=== PATIENT | female | born 1995 | race Caucasian/White ===

== ENCOUNTER 2025-05-01 13:22 | Emergency (ER) | payer BC, SELFPAY ==
[2025-05-01] VITALS (12 sets, daily range): BP systolic 90–113; BP diastolic 52–85; PULSE 78–92; RESP 13–30; TEMP 36.6; O2SAT 97–98
--- NOTE | 2025-05-01 13:49 | W.ED.GENAD ---
Discharge Plan Disposition Patient Disposition: Home Condition: Stable Discharge Details Clinical Impression: Gastroenteritis Primary Care Provider: Unknown,Unknown ED Provider: Shane Connelly Home Meds and New Rx's Prescriptions: New ondansetron 4 mg tablet,disintegrating 4 mg PO Q8H PRNQty: 30 0RF Continued escitalopram oxalate [Lexapro] 20 mg tablet 20 mg PO DAILY Discharge Instructions Instructions: Viral gastroenteritis in adults, Ondansetron Additional Instructions: You were seen in the emergency department for your likely viral gastroenteritis, your labs are reassuring for no evidence of severe infection or sepsis, your symptoms were controlled with antiemetics as well as IV Tylenol and Toradol and IV fluids. I have sent a prescription for oral antiemetic called ondansetron/Zofran to your pharmacy, place this dissolvable tablet under your tongue 20 to 30 minutes before attempting oral intake, your CT is negative for any sign of appendicitis, dysfunction of any organ in the biliary tree like liver or gallbladder or pancreas, sign of renal stone, your urine shows no evidence of infection and you are not , please return to the emergency department for continued intractable nausea and vomiting despite treatment, developing fever with severe worsening of abdominal pain. HPI General Date/Time Provider Initiated Documentation: 05/01/25 13:30. HPI Narrative: 29 year-old female presents to ED today by EMS with a chief complaint of acute nausea/vomiting with onset 1200 today. Quality described as intractable nausea/vomiting with some red specks in vomitus which is clear on arrival, no radiation to chest pain, fever, cough, shortness of breath, endorses severe R lower abdominal pain, denies dysuria, flank pain, syncope. Severity is described as severe. Palliating factors include nothing specific attempted. Provoking factors include nothing specific- cannot recall eating any food that could've caused this. Events leading up to the incident/Associated Symptoms: Patient doesn't believe she has possibility of . Has some sort of wellness patch on her wrist. Patient not anticoagulated. Related Data Home Medications ?Medication ?Instructions ?Recorded ?Confirmed escitalopram oxalate 20 mg tablet 20 mg PO DAILY 05/01/25 05/01/25 (Lexapro) ondansetron 4 mg disintegrating 4 mg PO Q8H PRN #30 tabs 05/01/25 tablet Previous Rx's ?Medication ?Instructions ?Recorded ondansetron 4 mg disintegrating 4 mg PO Q8H PRN #30 tabs 05/01/25 tablet Allergies Allergy/AdvReac Type Severity Reaction Status Date / Time No Known Allergies Allergy Unverified 05/01/25 13:29 General Stated Complaint: Abd Prob JAYA: 3 Review of Systems All systems reviewed & are unremarkable except as noted in HPI and below Exam Narrative Exam Narrative: GENERAL APPEARANCE: Well-nourished, non-toxic, awake and alert, atraumatic, moderate acute distress. SKIN: Warm, pink, diaphoretic, intact, without rashes/lesions/ulcerations. HEAD: Normocephalic, atraumatic, normal hair distribution for gender/age. EYES: Normal conjunctiva, no exudates on lids/lashes. ENT: Nares patent, no circumoral cyanosis, no facial swelling NECK: Supple, trachea midline, painless cervical ROM. LUNGS/CHEST: Lungs CTA bilaterally- no rhonchi/rales/wheezes diffusely, non-labored respirations, normal A/P diameter, symmetrical expansion, no chest wall deformity HEART (CV/PV): Regular rate and rhythm without murmur, no peripheral edema, no JVD. ABDOMEN: Soft, non-distended, no guarding, RLQ tenderness with rebound tenderness, no CVA tenderness to percussion bilaterally. MSK: Normal ROM, no swelling/deformity to bilateral UEs or LEs, moving all extremities without weakness, no cyanosis, spine midline without tenderness, normal curvature. NEURO: Mental Status AAOx4 - alert to person, place, time, events No facial droop, no forehead involvement. Motor: No focal weakness - strength 5/5 in bilateral UEs and LEs, proximal and distal, symmetric. Sensory: sensation intact to light touch globally. Gait NT. PSYCH: euthymic, cooperative, pleasant, appropriate speech Course Vital Signs Vital signs: Vital Signs Temperature 36.6 C 05/01/25 13:23 Pulse 85 05/01/25 13:23 Respiratory Rate 30 H 05/01/25 13:23 Blood Pressure 113/85 05/01/25 13:23 Pulse Oximetry 98 05/01/25 13:23 Temperature 36.6 C 05/01/25 13:27 Pulse 85 05/01/25 13:27 Respiratory Rate 30 H 05/01/25 13:27 Blood Pressure 113/85 05/01/25 13:27 Blood Pressure Position Sitting 05/01/25 13:27 Pulse Oximetry 98 05/01/25 13:27 Oxygen Delivery Method Room Air 05/01/25 13:27 Oxygen Flow Rate 0 05/01/25 13:27 Medical Decision Making This dictation utilizes [id number] dictation software and may contain unedited grammatical errors. 29 year-old female presents to ED today by EMS with a chief complaint of acute nausea/vomiting with onset 1200 today. Quality described as intractable nausea/vomiting with some red specks in vomitus which is clear on arrival, no radiation to chest pain, fever, cough, shortness of breath, endorses severe R lower abdominal pain, denies dysuria, flank pain, syncope. Severity is described as severe. Palliating factors include nothing specific attempted. Provoking factors include nothing specific- cannot recall eating any food that could've caused this. Events leading up to the incident/Associated Symptoms: Patient doesn't believe she has possibility of . Has some sort of wellness patch on her wrist. Patients' medical history: Negative, otherwise healthy. Family and social history: Denies illicit drug use, denies EtOH use. Pertinent exam findings / vital signs include diaphoretic, fatigued, diffuse lower right-sided abdominal tenderness with rebound tenderness, no tachycardia, lungs clear to auscultation. Differential / pathologies of concern include appendicitis, renal colic, , dehydration, electrolyte abnormality, gastroenteritis, cannabis hyperemesis/cyclic vomiting syndrome. Diagnostic studies of: - CBC, CMP, lactate, magnesium, lipase, TSH, UA, UDS, CT ABD/pelvis with contrast. - CBC shows a nonspecific leukocytosis of 14.2 with elevated absolute neutrophils - Lactate 1.7, do not suspect sepsis - CMP shows mild hypokalemia at 3.3 with an anion gap of 16.5 otherwise unremarkable - Magnesium within normal limits - Lipase negative - TSH within normal limits - UA shows significant dehydration with specific gravity greater than 1.030, no nitrites, trace blood, nonspecific - UDS negative - CT shows fluid-filled colon likely diarrheal illness - POC uPreg negative Interventions of: - 1 g IV Tylenol, 1 L IVF NS, 15 mg IVP Toradol, 4 mg IVP Zofran. -20mg IVP famotidine, 40mEq potassium PO ED Course/Assessment/Plan: 29-year-old female presents by EMS for intractable nausea and vomiting for couple hours, she has some red specks in her vomitus present on her gown on my evaluation, her labs are reassuring for no evidence of sepsis, CT is negative for any acute surgical abdominal pathology like appendicitis, patient's U is negative, UDS is negative for any cannabis, UA shows no sign of infection, lipase is within normal limits, magnesium is within normal limits, I am replating potassium, patient will be given a p.o. challenge and can be sent home with Zofran upon passing this. Patient comfortable with this plan. Findings not consistent with , renal colic, appendicitis, severe electrolyte abnormality, cannabis use- likely gastroenteritis. Disposition of Gastroenteritis. Patient verbalized understanding of the plan and return to ED criteria and engaged in shared decision making. Medical Records Medical records reviewed: Yes I reviewed the patient's medical records. Imaging Data Radiologic Study: Attestation: I personally reviewed and interpreted this imaging study as follows: Imaging: CT Scan Radiologist's impression: EXAM: CT ABDOMEN PELVIS W CLINICAL HISTORY: RLQ tenderness, intractable vomiting. TECHNIQUE: Imaging Protocol: Axial computed tomography images with coronal and sagittal reformatted images were created and reviewed CONTRAST MATERIAL: Intravenous: Omnipaque 350 Contrast volume:70 ml Oral: no COMPARISON: No exams were available for comparison FINDINGS: ABDOMEN and PELVIS: Lung Bases: No acute findings. Liver: Normal density. No suspicious mass. Gallbladder and biliary tract: No radiodense calculus. No wall thickening or pericholecystic fluid. No biliary dilation. Pancreas: Normal density. No abnormal calcifications or inflammatory process. No evidence of mass. Spleen: Normal. Kidneys: Normal size, contour and axis. No radiodense stones. No obstructive uropathy. No suspicious masses seen. Adrenal glands: No masses seen. Vasculature: Abdominal aorta non-dilated. Soft tissues: Unremarkable. Bladder: No gross wall thickening. No calculi.No focal mass. Bowel: The stomach contains a small amount of air and fluid. The small bowel is decompressed. There is fluid throughout the colon but no abnormal colonic distention. No obstruction. No bowel wall thickening. The findings suggest a diarrheal illness. Peritoneal cavity: No ascites. No focal collection. No mesenteric inflammatory response. No free air. Bones: Unremarkable for age. Reproductive organs: Unremarkable. Lymph nodes: No pathologically enlarged lymph nodes. IMPRESSION:: Fluid-filled colon suggesting diarrheal illness. No evidence of appendicitis. No bowel wall thickening or evidence of obstruction. Lab Data Lab results reviewed: Yes I reviewed the patient's lab results. Labs: Laboratory Tests Range/Units 05/01/25 05/01/25 13:48 14:56 WBC (4.4-10.8) 10^3/uL 14.25 H RBC (3.93-5.22) 10^6/uL 5.09 Hgb (11.2-15.7) g/dL 15.2 Hct (36.0-46.0) % 45.3 MCV (80-95) fL 89 MCH (27.0-33.0) pg 29.9 MCHC (32.0-36.0) % 33.6 RDW (11.7-14.6) % 12.2 Plt Count (130-400) 10^3/uL 293 MPV (8.0-11.0) fL 9.2 Immature Gran % % 0.4 Neutrophils % % 86.1 Lymphocytes % % 10.7 Monocytes % % 2.5 Eosinophils % % 0.1 Basophils % % 0.2 Nucleated RBC % (0.0-0.3) % 0.0 Absolute Neutrophils (1.2-6.7) 10^3/uL 12.27 H Absolute Lymphocytes (1.2-3.4) 10^3/uL 1.52 Absolute Monocytes (0.1-0.8) 10^3/uL 0.36 Absolute Eosinophils (0.0-0.7) 10^3/uL 0.01 Absolute Basophils (0.0-0.2) 10^3/uL 0.03 VBG Lactate (<or=2.0) mmol/L 1.7 Sodium (136-145) mmol/L 139 Potassium (3.5-5.1) mmol/L 3.3 L Chloride (98-107) mmol/L 100 Carbon Dioxide (21.0-32.0) mmol/L 22.5 Anion Gap (3-11) mmol/L 16.5 H BUN (7-18) mg/dL 12 Creatinine (0.55-1.02) mg/dL 0.6 Est GFR (CKD-EPI 2020) (mL/min/1.73m2) 123.76 Glucose (74-106) mg/dL 111 H Calcium (8.5-10.1) mg/dL 10.0 Magnesium (1.8-2.4) mg/dL 2.1 Total Bilirubin (0.2-1.0) mg/dL 0.8 AST (15-37) U/L 23 ALT (14-59) U/L 20 Alkaline Phosphatase (46-116) U/L 57 Total Protein (6.4-8.2) g/dL 8.5 H Albumin (3.4-5.0) g/dL 4.5 Lipase (<78) U/L 34 TSH (0.36-3.74) uIU/mL 1.93 Urine Color (Yellow) Yellow Urine Clarity (Clear) Sl Cloudy Urine pH (5-8) 5.5 Ur Specific [place] (1.005-1.025) >= 1.030 H Urine Protein (Neg-Trace) mg/dL Trace Urine Ketones (Negative) mg/dL >=160 H Urine Blood (Negative) Trace-lysed H Urine Nitrite (Negative) Negative Urine Bilirubin (Negative) Small H Urine Urobilinogen (Up to 0.2) mg/dL 0.2 Ur Leukocyte Esterase (Negative) Small H Urine RBC (0-2) HPF 0-2 Urine WBC (0-5) HPF 5-10 Ur Epithelial Cells (Negative) HPF Few Urine Crystals (Negative) HPF Negative Urine Bacteria (Negative) HPF Few Urine Casts (Negative) LPF 0-2 Hyaline Urine Mucus (Negative) Negative Ur Culture Indicated? No Urine Glucose (Negative) mg/dL Negative Urine Opiates Screen (Negative) Negative Urine Methadone Screen (Negative) Negative Ur Barbiturates Screen (Negative) Negative Ur Tricyclics Screen (Negative) Negative Ur Amphetamines Screen (Negative) Negative U Benzodiazepines Scrn (Negative) Negative Urine Cocaine Screen (Negative) Negative Ur THC Screen (Negative) Negative PFSH All Active Problems (Updated 05/01/25 @ 15:45 by RACHELL Tucker) Gastroenteritis (Acute) Social History Smoking risk assessment performed?: No PAWSS Have you Been Recently Intoxicated or Drunk Within the Last 30 days?: No Have you Ever Experienced Previous Episodes of Alcohol Withdrawal?: No Have you ever Experienced Withdrawal Seizures?: No Have you ever Experienced Delirium Tremens(DT)s?: No Have you ever undergone Alcohol Rehabilitation Treatment (i.e, inpt ot outpatient treatment programs)?: No Have you ever Experienced Blackouts?: No Have you ever Combined Alcohol with other Downers within the last 90 days?: No Have you ever Combined Alcohol with any other Substance of Abuse during the last 90 days?: No Positive Blood Alcohol level on Presentation? [PCS.BAL]: No Evidence of Increased Autonomic Activity (i.e. HR>120, tremor, sweating, agitation, nausea)?: No Result: 0
[2025-05-01 14:02] LABS: Lactate 1.7 mmol/L (<or=2.0)
[2025-05-01 14:04] LABS: Abs Immature Grans 0.05 10^3/uL (0.0-0.06); Absolute Basophil Count 0.03 10^3/uL (0.0-0.2); Absolute Eosinophil Count 0.01 10^3/uL (0.0-0.7); Absolute Monocyte Count 0.36 10^3/uL (0.1-0.8); Absolute Neutrophil Count 12.27 10^3/uL (1.2-6.7); Basophils % 0.2 %; Eosinophils % 0.1 %; HCT 45.3 % (36.0-46.0); HGB 15.2 g/dL (11.2-15.7); Immature Grans % 0.4 %; Lymphocytes % 10.7 %; MCH 29.9 pg (27.0-33.0); MCHC 33.6 % (32.0-36.0); MCV 89 fL (80-95); MPV 9.2 fL (8.0-11.0); Monocytes % 2.5 %; Neutrophils % 86.1 %; Platelet Count 293 10^3/uL (130-400); RBC 5.09 10^6/uL (3.93-5.22); RDW 12.2 % (11.7-14.6); RDW-SD 40.1 fL; WBC 14.25 10^3/uL (4.4-10.8)
[2025-05-01 14:05] LABS: Absolute Lymphocyte Count 1.52 10^3/uL (1.2-3.4)
--- NOTE | 2025-05-01 14:16 | NUR.NOTE ---
mother Tracey [phone] Nursing Note:
--- NOTE | 2025-05-01 14:27 | NUR.NOTE ---
pts socks were removed and pt requested that they just be thrown away. Socks were thrown away and pt was made aware to confirm. Nursing Note:
[2025-05-01 14:30] LABS: ALT 20 U/L (14-59); AST 23 U/L (15-37); Albumin 4.5 g/dL (3.4-5.0); Alkaline Phosphatase 57 U/L (46-116); Anion Gap 16.5 mmol/L (3-11); BUN 12 mg/dL (7-18); Bilirubin, Total 0.8 mg/dL (0.2-1.0); CO2 22.5 mmol/L (21.0-32.0); CREATININE 0.6 mg/dL (0.55-1.02); Chloride 100 mmol/L (98-107); Estimated GFR 123.76 (mL/min/1.73m2); Glucose 111 mg/dL (74-106); Lipase 34 U/L (<78); Magnesium 2.1 mg/dL (1.8-2.4); Potassium 3.3 mmol/L (3.5-5.1); Sodium 139 mmol/L (136-145); TSH (W/Ref FT4) 1.93 uIU/mL (0.36-3.74); Total Protein 8.5 g/dL (6.4-8.2)
[2025-05-01] MEDS: ACETAMINOPHEN 1,000 MG/100 ML BAG 400 MG IVPB (14:36)
[2025-05-01] MEDS: Ondansetron 4 MG/2 ML VIAL IVP (14:37)
[2025-05-01] MEDS: Famotidine 20 MG/2 ML VIAL IVP (14:38)
[2025-05-01] MEDS: Ketorolac 15 MG/ML VIAL IVP (14:38)
[2025-05-01] MEDS: Normal Saline 1,000 ML 1000 ML IV (14:48)
[2025-05-01 15:11] LABS: Bilirubin Small (Negative); Blood Trace-lysed (Negative); Clarity Sl Cloudy (Clear); Glucose Negative (Negative); Ketones >=160 mg/dL (Negative); Leukocyte Esterase Small (Negative); Nitrite Negative (Negative); Specific Gravity >= 1.030 (1.005-1.025); Urobilinogen 0.2 mg/dL (Up to 0.2); pH 5.5 (5-8)
[2025-05-01] MEDS: Normal Saline - Diluent 50 ML VIAL IJ (15:13)
[2025-05-01] MEDS: Omnipaque 350 MG/ML 500 ML BTL-Imaging package IJ (15:14)
[2025-05-01 15:25] LABS: *AMPHETAMINES SCREEN URINE Negative (Negative); *BARBITURATES SCREEN URINE Negative (Negative); *BENZODIAZEPINES SCREEN URINE Negative (Negative); Cannabinoids THC Negative (Negative); Cocaine Screen,Urine Negative (Negative); METHADONE URINE SCREEN Negative (Negative); OPIATES URINE SCREEN Negative (Negative)
--- NOTE | 2025-05-01 15:25 | DI.CT_ITS ---
Exam(s) CT ABDOMEN PELVIS W EXAM: CT ABDOMEN PELVIS W CLINICAL HISTORY: RLQ tenderness, intractable vomiting. TECHNIQUE: Imaging Protocol: Axial computed tomography images with coronal and sagittal reformatted images were created and reviewed CONTRAST MATERIAL: Intravenous: Omnipaque 350 Contrast volume:70 ml Oral: no COMPARISON: No exams were available for comparison FINDINGS: ABDOMEN and PELVIS: Lung Bases: No acute findings. Liver: Normal density. No suspicious mass. Gallbladder and biliary tract: No radiodense calculus. No wall thickening or pericholecystic fluid. No biliary dilation. Pancreas: Normal density. No abnormal calcifications or inflammatory process. No evidence of mass. Spleen: Normal. Kidneys: Normal size, contour and axis. No radiodense stones. No obstructive uropathy. No suspicious masses seen. Adrenal glands: No masses seen. Vasculature: Abdominal aorta non-dilated. Soft tissues: Unremarkable. Bladder: No gross wall thickening. No calculi.No focal mass. Bowel: The stomach contains a small amount of air and fluid. The small bowel is decompressed. There is fluid throughout the colon but no abnormal colonic distention. No obstruction. No bowel wall thickening. The findings suggest a diarrheal illness. Peritoneal cavity: No ascites. No focal collection. No mesenteric inflammatory response. No free air. Bones: Unremarkable for age. Reproductive organs: Unremarkable. Lymph nodes: No pathologically enlarged lymph nodes. IMPRESSION:: Fluid-filled colon suggesting diarrheal illness. No evidence of appendicitis. No bowel wall thickening or evidence of obstruction. RADIATION DOSE DELIVERED: Total DLP DATA REPOSITORY: All CT scans at this facility are submitted to the National Radiology Data Registry (NRDR) Dose Index Registry (DIR) with the [employer] (A[employer]). RADIATION OPTIMIZATION: All CT scans at this facility use at least one of these dose optimization techniques: automated exposure control; mA and/or kV adjustment per patient size (includes targeted exams where dose is matched to clinical indication); or iterative reconstruction.
[2025-05-01 15:26] LABS: Tricyclic Antidepressants Negative (Negative)
[2025-05-01 15:30] LABS: Bacteria Few HPF (Negative); C & S Indicated? No; Casts 0-2 Hyaline LPF (Negative); Crystals Negative HPF (Negative); Epithelial Cells Few HPF (Negative); Mucus Negative (Negative); RBC 0-2 HPF (0-2)
[2025-05-01] MEDS: Potassium Chloride 20 MEQ TABCR 40 MEQ PO (16:09)
== END 2025-05-01 16:40 | disposition home or self-care (01) ==
LOC: ER 15:47
PROVIDERS: Emergency Provider Physician Assistant
DX: K52.9 Noninfective gastroenteritis and colitis, unspecified (principal)
CPT/HCPCS: 36415; 80053; 80307; 81025; 83690; 96361; 96374; 96375; 99285; 74177; 81003; 81015; 83605; 83735; 84443; 85025; J0131; J1885; J2405

== ENCOUNTER 2025-05-02 18:37 | Outpatient (REF) | payer BC, SELFPAY ==
[2025-05-04 11:37] LABS: GC Result Negative (Negative)
[2025-05-04 11:51] LABS: Specimen Description VAGINAL
[2025-05-04 11:57] LABS: Chlamydia Result Positive (Negative)
== END 2025-05-02 18:38 | disposition home or self-care (01) ==
LOC: LBN 18:37
PROVIDERS: Visit Provider Nurse Practitioner Family
DX: Z11.3 Encounter for screening for infections with a predominantly sexual mode of transmission (principal)
CPT/HCPCS: 87491; 87591

== ENCOUNTER 2025-07-19 18:10 | Outpatient (REF) | payer BC, SELFPAY ==
[2025-07-20 18:50] LABS: Hepatitis C Ab w Rflx HCV PCR Negative (Negative)
[2025-07-20 18:54] LABS: HIV-1/2 Ag & Ab Screen Negative (Negative)
[2025-07-21 11:08] LABS: Syphilis Serology (RPR) Negative (Negative)
[2025-07-21 11:54] LABS: Chlamydia Result Negative (Negative); GC Result Negative (Negative)
== END 2025-07-19 18:11 | disposition home or self-care (01) ==
LOC: LBN 18:10
PROVIDERS: Visit Provider Physician Assistant Medical
DX: Z11.3 Encounter for screening for infections with a predominantly sexual mode of transmission (principal)
CPT/HCPCS: 86803; 87389; 87491; 87591; 86592